=== PATIENT | female | born 1995 | race Caucasian/White ===

== ENCOUNTER 2021-06-07 16:01 | Outpatient (REF) | payer SELFPAY ==
[2021-06-10 16:10] LABS: GC Result Negative (Negative)
[2021-06-10 16:59] LABS: Chlamydia Result Positive (Negative)
== END 2021-06-07 16:02 | disposition home or self-care (01) ==
LOC: LBN 16:01
PROVIDERS: Visit Provider Nurse Practitioner Family
DX: Z11.3 Encounter for screening for infections with a predominantly sexual mode of transmission (principal)
CPT/HCPCS: 87491; 87591

== ENCOUNTER 2021-06-14 02:19 | Outpatient (CLI) | payer SELFPAY ==
[2021-06-14 16:34] LABS: HCG Quant, Pregnancy < 1 mIU/mL (1-3)
== END 2021-06-14 02:20 | disposition home or self-care (01) ==
LOC: LBO 02:19
PROVIDERS: Visit Provider Nurse Practitioner Family
DX: N93.9 Abnormal uterine and vaginal bleeding, unspecified (principal)
CPT/HCPCS: 36415; 84702

== ENCOUNTER 2022-03-31 15:29 | Outpatient (REF) | payer SELFPAY ==
--- NOTE | 2022-03-31 15:05 | PAPFT_PTH ---
PATIENT: Starr Calderon LOC: [facility] U#:[id number] AGE/SX: 27/F ROOM: RE03/31/[address]: JENNIFER Teran : 1995 BED: DIS: 03/31/2022 SPEC #: [id number] RECD: 03/31/22 17:03 STATUS: SUKHJINDER REQ #: [id number] JERROD: 03/31/22 15:[address]: Poppy Escobar DEPT: [facility] Cytology RECD BY: Anitra Crespo ENTERED: 03/31/22 17:04 SP TYPE: PAPFT ELICIA DR: Unknown,Unknown Tissues: 1 - CX/ENDOCX FOR PAP SMEARS Procedures: PAP THIN PREP/UVM Screening Comments: [id number] (UNSATISFACTORY FOR EVALUATION)
[2022-04-02 15:08] LABS: Chlamydia Result Negative (Negative); GC Result Negative (Negative)
== END 2022-03-31 15:30 | disposition home or self-care (01) ==
LOC: LBN 15:29
PROVIDERS: Visit Provider Nurse Practitioner Family
DX: R30.0 Dysuria (principal); Z11.3 Encounter for screening for infections with a predominantly sexual mode of transmission; Z12.4 Encounter for screening for malignant neoplasm of cervix
CPT/HCPCS: 87491; 87591; 88142; 87086

== ENCOUNTER 2023-08-25 12:58 | Outpatient (CLI) | payer MEDICAID, SELFPAY ==
[2023-08-25 12:50] LABS: HCG Quant, Pregnancy 3141 mIU/mL (1-3)
[2023-08-25 13:10] LABS: FREE T4 0.66 ng/dL (0.76-1.46)
[2023-08-25 17:13] LABS: T3,Free 3.2 pg/mL (2.8-5.3)
== END 2023-08-25 12:59 | disposition home or self-care (01) ==
LOC: LBO 12:59
PROVIDERS: Visit Provider Student in an Organized Health Care Education/Training Program
DX: E05.90 Thyrotoxicosis, unspecified without thyrotoxic crisis or storm (principal)
CPT/HCPCS: 36415; 84439; 84443; 84481; 84702

== ENCOUNTER 2023-09-01 19:52 | Outpatient (CLI) | payer MEDICAID, SELFPAY ==
[2023-09-01 12:07] LABS: HCG Quant, Pregnancy 542 mIU/mL (1-3)
== END 2023-09-01 19:53 | disposition home or self-care (01) ==
LOC: LBO 19:58
PROVIDERS: Visit Provider Student in an Organized Health Care Education/Training Program
DX: O02.0 Blighted ovum and nonhydatidiform mole (principal)
CPT/HCPCS: 36415; 84702

== ENCOUNTER 2023-09-08 17:48 | Outpatient (CLI) | payer MEDICAID, SELFPAY ==
[2023-09-08 11:25] LABS: HCG Quant, Pregnancy 118 mIU/mL (1-3)
== END 2023-09-08 17:49 | disposition home or self-care (01) ==
LOC: LBO 09-10 17:48
PROVIDERS: Visit Provider Student in an Organized Health Care Education/Training Program
DX: O02.0 Blighted ovum and nonhydatidiform mole (principal)
CPT/HCPCS: 36415; 84702

== ENCOUNTER 2023-09-15 15:09 | Outpatient (CLI) | payer MEDICAID, SELFPAY ==
[2023-09-15 10:56] LABS: HCG Quant, Pregnancy 32 mIU/mL (1-3)
== END 2023-09-15 15:10 | disposition home or self-care (01) ==
LOC: LBO 15:09
PROVIDERS: Visit Provider Student in an Organized Health Care Education/Training Program
DX: O02.0 Blighted ovum and nonhydatidiform mole (principal)
CPT/HCPCS: 36415; 84702

== ENCOUNTER 2023-09-25 15:06 | Outpatient (CLI) | payer MEDICAID, SELFPAY ==
[2023-09-25 11:06] LABS: HCG Quant, Pregnancy 7 mIU/mL (1-3)
== END 2023-09-25 15:07 | disposition home or self-care (01) ==
LOC: LBO 15:07
PROVIDERS: Visit Provider Student in an Organized Health Care Education/Training Program
DX: O02.0 Blighted ovum and nonhydatidiform mole (principal)
CPT/HCPCS: 36415; 84702

== ENCOUNTER 2023-10-02 12:16 | Outpatient (CLI) | payer MEDICAID, SELFPAY ==
[2023-10-02 12:01] LABS: HCG Quant, Pregnancy 4 mIU/mL (1-3)
== END 2023-10-02 12:17 | disposition home or self-care (01) ==
LOC: LBO 12:16
PROVIDERS: Visit Provider Student in an Organized Health Care Education/Training Program
DX: O02.0 Blighted ovum and nonhydatidiform mole (principal)
CPT/HCPCS: 36415; 84702

== ENCOUNTER 2023-10-07 10:23 | Outpatient (CLI) | payer MEDICAID, SELFPAY ==
[2023-10-07 13:44] LABS: HCG Quant, Pregnancy 3 mIU/mL (1-3)
== END 2023-10-07 10:24 | disposition home or self-care (01) ==
LOC: LBO 10:24
PROVIDERS: Visit Provider Student in an Organized Health Care Education/Training Program
DX: O02.0 Blighted ovum and nonhydatidiform mole (principal)
CPT/HCPCS: 36415; 84702

== ENCOUNTER 2023-10-14 09:47 | Outpatient (CLI) | payer MEDICAID, SELFPAY ==
[2023-10-14 10:02] LABS: HCG Quant, Pregnancy 1 mIU/mL (1-3)
== END 2023-10-14 09:48 | disposition home or self-care (01) ==
LOC: LBO 09:48
PROVIDERS: Visit Provider Student in an Organized Health Care Education/Training Program
DX: O02.0 Blighted ovum and nonhydatidiform mole (principal)
CPT/HCPCS: 36415; 84702

== ENCOUNTER 2023-10-21 10:11 | Outpatient (CLI) | payer MEDICAID, SELFPAY ==
[2023-10-21 10:16] LABS: HCG Quant, Pregnancy 1 mIU/mL (1-3)
== END 2023-10-21 10:12 | disposition home or self-care (01) ==
LOC: LBO 10:12
PROVIDERS: Visit Provider Student in an Organized Health Care Education/Training Program
DX: O02.0 Blighted ovum and nonhydatidiform mole (principal)
CPT/HCPCS: 36415; 84702

== ENCOUNTER 2023-11-26 15:11 | Outpatient (CLI) | payer MEDICAID, SELFPAY ==
[2023-11-26 15:48] LABS: HCG Quant, Pregnancy < 1 mIU/mL (1-3)
== END 2023-11-26 15:12 | disposition home or self-care (01) ==
LOC: LBO 15:12
PROVIDERS: Visit Provider Student in an Organized Health Care Education/Training Program
DX: O02.0 Blighted ovum and nonhydatidiform mole (principal)
CPT/HCPCS: 36415; 84702

== ENCOUNTER 2024-06-20 01:14 | Outpatient (CLI) | payer MEDICAID, SELFPAY ==
--- NOTE | 2024-06-20 | DI.US_ITS ---
Exam(s) US OB 1ST TRIMESTER EXAM: US OB 1ST TRIMESTER CLINICAL HISTORY: , DARRELL 01/24/25; FAX [phone]. TECHNIQUE: First trimester obstetrical ultrasound was performed. COMPARISON: US US OB 2-3 TRIMESTER from 08/27/2022 FINDINGS: There is an intrauterine gestational sac which contains a 3 mm yolk sac and viable pole which e xhibits heart rate of 165 bpm. [place]-rump length measurement is 21 mm, corresponding to 8 weeks and 5 days gestational age. There is a subchorionic hemorrhage evident which measures 1.3 x 0.2 x 1.9 cm Maternal ovaries: Right ovary unremarkable. Finding in the left ovary which is probably corpus luteal cyst. There is no fluid in the cul-de-sac and adnexal regions. IMPRESSION:: Single viable intrauterine gestation which is approximately 8 weeks and 5 days gestatio nal age by crown rump length measurement, implying DARRELL of 01/24/2025, There is a subchorionic hemorrhage measuring 13 x 2 x 19 mm DATA REPOSITORY:
== END 2024-06-20 01:34 ==
LOC: DI 01:14
PROVIDERS: Visit Provider Midwife
DX: Z34.91 Encounter for supervision of normal pregnancy, unspecified, first trimester (principal); Z3A.08 8 weeks gestation of pregnancy
CPT/HCPCS: 76801

== ENCOUNTER 2024-08-16 10:09 | Observation (INO) | payer MEDICAID, SELFPAY ==
[2024-08-16] VITALS (18 sets, daily range): BP systolic 66–130; BP diastolic 26–88; PULSE 48–95; RESP 16–20; TEMP 36.5–37; O2SAT 100; BMI 25.7
[2024-08-16 10:45] LABS: HCT 38.1 % (36.0-46.0); HGB 13.1 g/dL (11.2-15.7); MCH 29.4 pg (27.0-33.0); MCHC 34.4 % (32.0-36.0); MCV 85 fL (80-95); MPV 8.1 fL (8.0-11.0); Platelet Count 267 10^3/uL (130-400); RBC 4.46 10^6/uL (3.93-5.22); RDW 12.6 % (11.7-14.6); RDW-SD 39.3 fL; WBC 6.94 10^3/uL (4.4-10.8)
[2024-08-16] MEDS: miSOPROStol 200 MCG TAB 400 MCG VG ×2 (11:21→14:18)
--- NOTE | 2024-08-16 12:46 | NUR.NOTE ---
Gave patient miscarriage folder from [facility], discussed a few things she and her will get to go over with provider after baby is born and options for taking baby home, , genetic studies. Also discussed that friends and family may not bring the baby up because they aren't sure if you will want to talk about it and that sometimes people try to say something supportive and unintentionally hurt your feelings.Nursing Note:
--- NOTE | 2024-08-16 14:24 | W.PM.HP.N ---
Date of service: 08/16/24 Time of Service: 14:24 Assessment and Plan Assessment and plan (1) demise before 20 weeks with retention of fetus: Status: Acute Assessment and plan: Pt has given verbal consent to IOL with Misoprostol per vagina. Her questions were answered. History of Present Illness History of Present Illness Chief Complaint: IUFD at 16w EGA for induction of labor. Narrative: Pt is a 29yo female who presents for scheduled IOL. She is accompanied by her Brendan. Pt presented to [facility] provider [facility] on 08/11/24 at 16w2d EGA by LMP. No heart tones were auscultated and POC u/s at [facility] confirmed IUFD. CRL measurement c/w 13w2d EGA. Pt was counseled regarding delivery options and requested vaginal delivery of IUFD. Rx for Mifepristone 200mg PO on 08/15/24. She denies bleeding after the Mifepristone dose. Review of Systems All systems reviewed & are unremarkable except as noted in HPI and below PFSH All Active Problems (Updated 08/11/24 @ 17:56 by Yudi Vera MD) demise before 20 weeks with retention of fetus (Acute) Family History Father Well adult Mother Well adult Social History (Updated 08/16/24 @ 16:53 by Kendra Stephenson MD) Smoking risk assessment performed?: No Substance use type: does not use Household members: spouse and other Details: brendan. Housing: house Number of Children: 1 Do you feel safe at home: Yes Do you feel safe in your relationship?: Yes History History 4 Para 1 Hx # Term Pregnancies 1 Multiple births Hx # Pregnancies Ectopic pregnancies AB induced Hx Number of Living Children 1 AB spontaneous 2 Past Pregnancies Del. Date GA/Weeks # Preg Succ Route Wgt Sex Labor Lgth Anesthesia Location Prov Complic 03/30/21 10 No No vaginal 01/07/23 40 No Yes vaginal 7 lb 8 oz Female 08/16/24 16 No: No FHT at 16w at home [employer] office when establishing care. vaginal Delivery Date: 03/30/21 Last Updated by: Kendra Stephenson MD 10w SAB at home. No D&C. Delivery Date: 01/07/23 Last Updated by: Kendra Stephenson MD Home . Norma Jaramillo.. Delivery Date: 08/16/24 Last Updated by: Kendra Stephenson MD 13w CRL on POC u/s. Mifepristone and Misoprostol. Meds Allergies and Home Medications Allergies Allergy/AdvReac Type Severity Reaction Status Date / Time No Known Allergies Allergy Verified 08/15/24 09:56 Home Medications ?Medication ?Instructions ?Recorded ?Confirmed ?Type mifepristone 200 mg tablet 200 mg PO ONCE #1 tab 08/11/24 08/15/24 Rx vitamin#30 30 mg iron-10 cap PO 08/11/24 08/15/24 History mg iron-folic acid 1 mg-omg3 capsule Exam Narrative Exam Narrative: Comfortable with decision to proceed with Miso induction of labor Neck Neck: normal visual inspection Chest Chest: deferred Resp Effort & Inspection: normal respiratory effort Auscultation: clear to auscultation bilaterally Cardio Rate: regular rate Rhythm: regular rhythm General: deferred (per pt request. Misoprotol dose 400mg placed vaginally.) External Female Exam: normal external appearance Back/Spine/Pelvis Back: no CVA tenderness Skin General skin exam: no rashes or lesions noted Neuro General: patient alert, patient awake and patient oriented x3 Cognition: normal cognition Speech: speech normal Gait: normal gait Extrem General: normal to inspection and full ROM Psych Appearance: grossly normal Mental Status: mental status grossly normal Speech and Movement: speech and movement normal Mood: congruent mood Affect: normal affect Attitude: cooperative Thought Process: normal Thought Content: normal Insight: insight good Judgment: judgment good Results Labs 08/16/24 10:35 Labs: Laboratory Results - last 24 hr 08/16/24 10:35 WBC 6.94 RBC 4.46 Hgb 13.1 Hct 38.1 MCV 85 MCH 29.4 MCHC 34.4 RDW 12.6 Plt Count 267 MPV 8.1 ABO/Rh O Positive Antibody Screen NEGATIVE Last Vital Signs Temp 98.1 F 08/16/24 10:42 Pulse 80 08/16/24 10:42 Resp 18 08/16/24 10:42 BP 129/77 08/16/24 10:42 Time Spent Time spent with Patient: <40 minutes Time was spent: preparing to see the patient(eg.review tests), obtaining and/or reviewing separately otained hiistory, ordering medications,tests, procedures, indepentently interpreting results and counseling the patient
[2024-08-16] MEDS: Normal Saline Flush 10 ML SYR IVP (15:59)
--- NOTE | 2024-08-16 17:22 | W.PM.PROGNOT ---
Date of Service Date of service: 08/16/24 Time of Service: 14:30 Assessment and Plan Assessment and plan (1) demise before 20 weeks with retention of fetus: Status: Acute (2) Encounter for induction of labor: Status: Acute Exam Narrative Exam Narrative: Pt feeling more pelvic cramping. No vaginal bleeding. No N/V. 2nd dose of Misoprostol 400mg administered vaginally at 14:20. Pt requested that SVE be deferred. Const General: cooperative and no acute distress Nutritional Appearance: well nourished Orientation: alert, awake and oriented x3 Resp Effort & Inspection: normal respiratory effort Auscultation: clear to auscultation bilaterally Psych Appearance: grossly normal Mental Status: mental status grossly normal Speech and Movement: speech and movement normal Mood: congruent mood Affect: normal affect Objective Last Vital Signs Temp 98.1 F 08/16/24 10:42 Pulse 80 08/16/24 10:42 Resp 18 08/16/24 10:42 BP 129/77 08/16/24 10:42 Laboratory Results - last 24 hr 08/16/24 10:35 WBC 6.94 RBC 4.46 Hgb 13.1 Hct 38.1 MCV 85 MCH 29.4 MCHC 34.4 RDW 12.6 Plt Count 267 MPV 8.1 ABO/Rh O Positive Antibody Screen NEGATIVE Time Spent with Patient Time Spent with Patient: <25 minutes Time was spent: obtaining and/or reviewing separately otained hiistory, ordering medications,tests, procedures and counseling the patient
[2024-08-16] MEDS: Lactated Ringers 1,000 ML 150 ML IV (17:30)
--- NOTE | 2024-08-16 17:37 | ANES.PREOP_ITS ---
General Info Date of Service Date Performed: 08/16/24 Height: 5 ft 4 in Weight: 68.039 kg Body Mass Index (BMI): 25.7 Meds Allergies and Home Medications Allergies Allergy/AdvReac Type Severity Reaction Status Date / Time No Known Allergies Allergy Verified 08/15/24 09:56 Home Medication ?Medication ?Instructions ?Recorded mifepristone 200 mg tablet 200 mg PO ONCE #1 tab 08/11/24 vitamin#30 30 mg iron-10 cap PO 08/11/24 mg iron-folic acid 1 mg-omg3 capsule Current Visit Medications: Current Medications Generic Name Dose Route Start Last Admin Trade Name Freq PRN Reason Stop Dose Admin IV Miscellaneous Supplies 1 each 08/16/24 10:15 Iv Access IV DIRECTED OLEG Misoprostol 400 mcg 08/16/24 11:00 08/16/24 14:18 Misoprostol 200 Mcg Tab VG 400 mcg Q3H PRN OLEG Administration Sodium Chloride 0 ml 08/16/24 10:09 Normal Saline Flush 10 Ml Syr IVP PRN PRN Sodium Chloride 0 ml 08/16/24 20:00 08/16/24 15:59 Normal Saline Flush 10 Ml Syr IVP 10 ml BID OLEG Administration Sodium Chloride 0 ml 08/16/24 10:09 Normal Saline 10 Ml Vial IJ DIRECTED PRN Terbutaline Sulfate 0.25 mg 08/16/24 10:09 Terbutaline 1 Mg/Ml Vial SC PRN PRN Zolpidem Tartrate 10 mg 08/16/24 21:00 Zolpidem 5 Mg Tab PO 08/17/24 06:00 2100 OLEG PFSH Active Problems Active Problems: Problem Status Onset Code Encounter for induction of labor Acute Z34.90 demise before 20 weeks with retention of fetus Acute O02.1 Substance Use Substance use type: does not use Prental History History 2 4 Para 1 Hx # Term Pregnancies 1 Multiple births Hx # Pregnancies Ectopic pregnancies AB induced Hx Number of Living Children 1 AB spontaneous 2 Past Pregnancies Del. Date GA/Weeks # Preg Succ Route Wgt Sex Labor Lgth Anesth esia Location Prov Complic 03/30/21 10 No No vaginal 01/07/23 40 No Yes vaginal 3401.943 g Female 08/16/24 16 No: No FHT at 16w at home [facility] when establishing care. vaginal Delivery Date: 03/30/21 Last Updated by: Kendra Stephenson MD 10w SAB at home. No D&C. Delivery Date: 01/07/23 Last Updated by: Kendra Stephenson MD Home . Normabetzaida Montiel. Delivery Date: 08/16/24 Last Updated by: Kendra Stephenson MD 13w CRL on POC u/s. Mifepristone and Misoprostol. Vital Signs and Lab Results Vital Signs Most Recent Vital Signs in EMR: Most Recent Vital Signs Temp Pulse Resp BP 36.7 C 80 18 129/77 08/16/24 10:42 08/16/24 10:42 08/16/24 10:42 08/16/24 10:42 Lab Results 08/16/24 18:55 Blood Type / Crossmatch: 2 Antibody Screen NEGATIVE 08/16/24 Complete Blood Count: 2 White Blood Count 15.99 10^3/uL (4.4-10.8) H 08/16/24 18:55 Red Blood Count 4.03 10^6/uL (3.93-5.22) 08/16/24 18:55 Hemoglobin 11.9 g/dL (11.2-15.7) 08/16/24 18:55 Hematocrit 35.2 % (36.0-46.0) L 08/16/24 18:55 Platelet Count 280 10^3/uL (130-400) 08/16/24 18:55 Complete Metabolic Panel: 2 No Data to Display Liver Function Panel: 2 No Data to Display Coagulation Panel: 2 No Data to Display Cardiac Panel: 2 No Data to Display Arterial Blood Gas: 2 No Data to Display Venous Blood Gas: 2 No Data to Display Pancreas Panel: 2 No Data to Display Thyroid Panel: 2 No Data to Display Infectious Disease: 2 No Data to Display Blood Cultures: 2 No Data to Display Toxicology Panel: 2 No Data to Display Panel: 2 No Data to Display Anesthesia Assessment and Plan Anesthesia History Personal History: No History of Anesthesia Complications Family History: No Family History of Anesthesia Complications Exercise Tolerance Exercise Tolerance: Metabolic Equivalents>4 Pertinent Negatives Pertinent Negatives: No Major Cardiovascular Symptoms or Complaints and No Major Pulmonary Symptoms or Complaints Cardiac & Pulmonary Exam Cardiac Exam: Normal S1/S2 Heart Sounds Pulmonary Exam: Clear Bilateral Breath Sounds Implantable Cardiac Device Does patient have a Pacemaker or an ICD?: No Airway Exam Known Difficult Airway: No Mallampati Class: Unable to Assess Mouth Opening: Unable to Assess Thyromental Distance: Greater than 3 cm Neck Range of Motion: Full ROM and Unable to Assess Neck Circumference: Normal Teeth Condition: Unable to Assess ASA Classification ASA Score: ASA 2 Emergency Case?: Yes NPO Status NPO Status: NPO Clears >2 hours, Solids >8 hours Status Status: Other (recently delivered fetus) Anesthesia Plan Resuscitation Status: Full Code Anesthesia Technique: General Anesthesia Airway Planned: Natural Airway Monitors Used: Standard Monitors Preoperative Comments:: Chart reviewed but unable to perform full assessment since rapid change in status and deemed emergency to get to OR. No consent obtained due to emergency.
--- NOTE | 2024-08-16 18:10 | PLAC_PTH ---
PATIENT: Starr Calderon LOC: OBS U#:[id number] AGE/SX: 29/F ROOM: OBS.306 RE08/16/[address]: Kendra Stephenson : 1995 BED: A DIS: 08/17/2024 SPEC #: [id number] RECD: 08/17/24 12:49 STATUS: SUKHJINDER REQ #: [id number] JERROD: 08/16/24 18:[address]: Kendra Stephenson DEPT: Surgical Specimen RECD BY: Anitra Crespo ENTERED: 08/17/24 12:51 SP TYPE: PLAC OTHR DR: Unknown,Unknown Tissues: 1 - PLACENTA (NOT 3RD TRIMESTER) 2 - ENDOMETRIUM BX/CURRETTE Procedures: GROSS AND MICRO LEVEL 4 Comments: [id number]
[2024-08-16 19:12] LABS: HCT 35.2 % (36.0-46.0); HGB 11.9 g/dL (11.2-15.7); MCH 29.5 pg (27.0-33.0); MCHC 33.8 % (32.0-36.0); MCV 87 fL (80-95); MPV 8.1 fL (8.0-11.0); Platelet Count 280 10^3/uL (130-400); RBC 4.03 10^6/uL (3.93-5.22); RDW 12.5 % (11.7-14.6); WBC 15.99 10^3/uL (4.4-10.8)
--- NOTE | 2024-08-16 20:20 | W.PM.OP ---
Operative Note Operative Note PRE-OP DIAGNOSIS: demise at 16w2d EGA, retained placenta POST-OP DIAGNOSIS: same PROCEDURE: manual extraction of retained placenta and suction curretage. SURGEON: Kendra Stephenson ANESTHESIA TYPE: MAC Refer to Anesthesia Record ESTIMATED BLOOD LOSS: 500 PATHOLOGY: other (placenta to pathology) COMPLICATIONS: None Patient was transported to: PACU Patient's condition: stable Indications: Pt is a 29yo female with a documented IUFD @ 16w EGA who underwent a IOL with 2 doses of 400mg vaginal Misoprostol. Pt had spontaneous expulsion of a non-viable fetus at 1542. She received Oxytocin infusion after delivery. There was not evidence of spontaneous passage of the placenta after 2 hours. Pt began to expel organized clots with cramping. Decision made to proceed to OR for extraction of placenta. Findings: External os 2 cm dilated. Intact placenta with central cord insertion. Procedure Description: Patient was taken to the operating room where she was placed in the dorsal supine position and monitored anesthesia care was administered without difficulty. She was then placed in the dorsal lithotomy position in yellowfin stirrups. Perineum was prepped with Betadine scrub. A bivalve speculum was placed into the vagina and a ring forcep inserted into the uterine cavity where the placenta was grasped and extracted intact. A single-tooth tenaculum was then placed on the anterior lip of the cervix and a 11 mm curved suction cannula was then inserted into the uterine cavity attached to suction and the uterine cavity suctioned in all 4 quadrants for small amount of tissue. Suction cannula was removed and a banjo curette was used to gently curette all 4 quadrants of the uterine cavity with no tissue returned. A final pass of the 11 mm suction cannula was performed with no further tissue removed tenaculum was removed and the site was inspected noted be hemostatic. All instruments were removed from the vagina the patient placed in the dorsal supine position awakened and transported to recovery area in stable condition. All sponge and lap counts were correct. No sharps were used during this procedure. Date of Procedure: 08/16/24
[2024-08-16] MEDS: Lactated Ringers 1,000 ML 125 ML IV (22:17)
--- NOTE | 2024-08-16 22:49 | W.PM.PROGNOT ---
Date of Service Date of service: 08/16/24 Time of Service: 16:30 Assessment and Plan Assessment and plan (1) SAB (spontaneous ): Status: Acute Assessment and plan: The plan is to await spontaneous delivery of placenta. Patient declines chromosome testing on fetus and request to take the fetus home with her when she is discharged. Subjective Subjective Interval history since last seen: Patient had spontaneous vaginal delivery of a nonviable fetus while sitting on the toilet. The fetus was retrieved the cord was doubly clamped and cut and the pain was then assisted back to the bed after a brief vaginal vagal episode. Blood pressure stable IV fluids were administered and oxytocin protocol was initiated. I spoke to the patient and offered her a D&C to remove her placenta. She declined wishing to postpone any type of intervention hoping to pass the placenta spontaneously. Objective Last Vital Signs Temp 98.0 F 08/16/24 19:31 Pulse 87 08/16/24 21:00 Resp 16 08/16/24 21:00 BP 110/70 08/16/24 21:00 Pulse Ox 100 08/16/24 19:31 Laboratory Results - last 24 hr 08/16/24 08/16/24 10:35 18:55 WBC 6.94 15.99 H RBC 4.46 4.03 Hgb 13.1 11.9 Hct 38.1 35.2 L MCV 85 87 MCH 29.4 29.5 MCHC 34.4 33.8 RDW 12.6 12.5 Plt Count 267 280 MPV 8.1 8.1 ABO/Rh O Positive Antibody Screen NEGATIVE Time Spent with Patient Time Spent with Patient: 25-34 minutes Time was spent: counseling the patient and care coordination
--- NOTE | 2024-08-16 23:13 | W.ANESPOSTOP ---
Postoperative Evaluation Date, Time and Location Date Performed: 08/16/24 Time Performed: 21:00 Patient Location: Obstetrics Vital Signs Most Recent Imported Vital Signs: Most Recent Vital Signs Temp Pulse Resp BP Pulse Ox 36.7 C 87 16 110/70 100 08/16/24 19:31 08/16/24 21:00 08/16/24 21:00 08/16/24 21:00 08/16/24 19:31 Pain Score Most Recent Pain Score: Most Recent Pain Score Pain Level 0 08/16/24 19:05 Assessment Mental Status: Awake (Alert & Oriented to Patient Baseline) Airway and Respiratory Function: Patent airway with normal (patient baseline) respiratory exam Cardiovascular Function: Hemodynamically Stable Hydration Status: Adequately Hydrated Nausea & Vomiting: No Nausea or Vomiting Pain: Pt. Denies Any Pain Peripheral Nerve Block: Patient did not receive a nerve block
[2024-08-17 00:36] VITALS: BP 110/69; PULSE 87; RESP 18; TEMP 36.9
[2024-08-17 04:34] VITALS: BP 100/65; PULSE 74; RESP 18; O2SAT 98
[2024-08-17 07:23] LABS: HCT 28.1 % (36.0-46.0); HGB 9.7 g/dL (11.2-15.7); MCH 29.3 pg (27.0-33.0); MCHC 34.5 % (32.0-36.0); MCV 85 fL (80-95); MPV 8.3 fL (8.0-11.0); Platelet Count 243 10^3/uL (130-400); RBC 3.31 10^6/uL (3.93-5.22); RDW 12.8 % (11.7-14.6); RDW-SD 39.6 fL; WBC 7.46 10^3/uL (4.4-10.8)
[2024-08-17 07:45] VITALS: BP 125/85; PULSE 89; RESP 14; TEMP 37
--- NOTE | 2024-08-17 10:35 | DSE_ITS ---
Date of service: 08/17/24 Time of Service: 10:35 DS: Diagnosis Discharge Diagnosis (1) SAB (spontaneous ): Status: Acute (2) H/O dilation and curettage: Status: Acute Discharge Plan Disposition Patient Disposition: Home Condition: Stable Discharge Details Reason For Visit: IUFD second trimester Admit Date/Time: 08/16/24 10:09 Admit Provider: Kendra Stephenson Attending Provider: Kendra Stephenson Primary Care Provider: Unknown,Unknown Hospital Course Hospital Course: Pt is a 29yo female with a documented IUFD @ 16w EGA who underwent a IOL with 2 doses of 400mg vaginal Misoprostol on 08/16/24. Pt had spontaneous expulsion of a non-viable fetus at later in the after noon on the day of admission. She received Oxytocin infusion after delivery. There was not evidence of spontaneous passage of the placenta after 2 hours. Pt began to expel organized clots with cramping. She underwent a D&C in the OR with EBL of 500cc. Procedure was well tolerated. Pt was discharged to home of POD 1. No cramping, minimal bleeding. She will f/u in [facility] office in 2 weeks. Will obtain hCG at that time. Final placental pathology pending. She declined a autopsy or chromosome analysis. Home Meds and New Rx's Prescriptions: No Action PNV #[id number] 30 mg iron-10 mg iron-1 mg capsule PO mifepristone 200 mg tablet 200 mg PO ONCE Qty: 1 0RF Rx Instructions: as a single dose. 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 Discharge Instructions Stand Alone Forms: DSU Post D&C Activity:: no intercourse Equipment/Supplies:: No Equipment Needed Diet:: As Tolerated Discharge Orders Discharge Orders: Discharge Order (Routine); Ordered 08/17/24 Ordered By: Kendra Stephenson DS: Summary Time Spent with Patient providing and/or coordinating discharge services: Less than 30 minutes Status at Discharge Functional status at discharge: independent ambulation Overall status at discharge: patient is progressing back to baseline Mental Status: mental status grossly normal Speech and Movement: speech and movement normal Mood: congruent mood Affect: normal affect Quality:SDOH Health Related Social Needs: No Data to Display Exam Const General: cooperative and no acute distress Nutritional Appearance: well nourished Orientation: alert, awake and oriented x3 Resp Effort & Inspection: normal respiratory effort Auscultation: clear to auscultation bilaterally Psych Appearance: grossly normal Mental Status: mental status grossly normal Speech and Movement: speech and movement normal Mood: congruent mood Affect: normal affect DS: Data Vitals/I&O Vitals and I&O: Vital Signs Temperature 98.6 F 08/17/24 07:45 Temperature Source Oral 08/17/24 07:45 Temperature Source Oral 08/16/24 15:55 Pulse 89 08/17/24 07:45 Pulse Rhythm Regular 08/17/24 07:45 Respiratory Rate 14 08/17/24 07:45 Blood Pressure 125/85 08/17/24 07:45 Blood Pressure Mean 74 08/16/24 17:49 Pulse Oximetry 98 08/17/24 04:34 Oxygen Delivery Method Room Air 08/17/24 07:45 Oxygen Flow Rate 0 08/17/24 07:45 Pain Level 0 08/17/24 04:34 Comment PLan to go to OR for d & c stat 08/16/24 17:49 Intake & Output 08/16/24 08/16/24 08/17/24 11:59 23:59 11:59 Intake Total 717.5 / 717.5 Output Total 500 / 500 600 / 600 Balance 217.5 / 217.5 -600 / -600 Weight 150 lb 150 lb Intake: IV 717.5 / 717.5 Output: Urine 600 / 600 Estimated Blood Loss 500 / 500 Other: Urine Color Pale Pale Straw Urine Appearance Clear Urine Odor None Comment missed the hat when she got up to the toilet to void Data Completed and Pending Labs on day of discharge: Labs from last 24 hours 08/17/24 08/16/24 08/16/24 07:05 18:55 10:35 WBC 7.46 15.99 H 6.94 RBC 3.31 L 4.03 4.46 Hgb 9.7 L D 11.9 13.1 Hct 28.1 L 35.2 L 38.1 MCV 85 87 85 MCH 29.3 29.5 29.4 MCHC 34.5 33.8 34.4 RDW 12.8 12.5 12.6 Plt Count 243 280 267 MPV 8.3 8.1 8.1 ABO/Rh O Positive Antibody Screen NEGATIVE PFSH All Active Problems (Updated 08/16/24 @ 22:53 by Kendra Stephenson MD) H/O dilation and curettage (Acute) SAB (spontaneous ) (Acute) 08/16/2024. Induction of labor for nonviable fetus diagnosed at 16 weeks EGA. Encounter for induction of labor (Acute) demise before 20 weeks with retention of fetus (Acute) Family History Father Well adult Mother Well adult Social History (Updated 08/16/24 @ 16:53 by Kendra Stephenson MD) Smoking risk assessment performed?: No Substance use type: does not use Household members: spouse and other Details: skyler. Housing: house Number of Children: 1 Do you feel safe at home: Yes Do you feel safe in your relationship?: Yes History History 4 Para 1 Hx # Term Pregnancies 1 Multiple births Hx # Pregnancies Ectopic pregnancies AB induced Hx Number of Living Children 1 AB spontaneous 2 Past Pregnancies Del. Date GA/Weeks # Preg Succ Route Wgt Sex Labor Lgth Anesth esia Location Prov Complic 03/30/21 10 No No vaginal 01/07/23 40 No Yes vaginal 7 lb 8 oz Female 08/16/24 16 No: No FHT at 16w at home [facility] when establishing care. vaginal Delivery Date: 03/30/21 Last Updated by: Kendra Stephenson MD 10w SAB at home. No D&C. Delivery Date: 01/07/23 Last Updated by: Kendra Stephenson MD Home . Norma Ella.. Delivery Date: 08/16/24 Last Updated by: Kendra Stephenson MD 13w CRL on POC u/s. Mifepristone and Misoprostol. Time Spent with Patient Time Spent with Patient: <45 minutes Time was spent: preparing to see the patient(eg.review tests), obtaining and/or reviewing separately otained hiistory and counseling the patient
== END 2024-08-17 12:20 | disposition home or self-care (01) ==
PROVIDERS: Admitting Provider Obstetrics & Gynecology Gynecology; Visit Provider Obstetrics & Gynecology Gynecology
PROC: (CPT 59160; principal; 2024-08-16 17:45)
DX: O36.4XX0 Maternal care for intrauterine death, not applicable or unspecified (principal); Z37.1 Single stillbirth; Z3A.16 16 weeks gestation of pregnancy; O03.30 Unspecified complication following incomplete spontaneous abortion
CPT/HCPCS: 59160; 59821; 36415; 85027; 86850; 86900; 86901; 88305; 59200; J0665; J2003; J2250; J2704

== ENCOUNTER 2024-09-02 13:49 | Outpatient (CLI) | payer MEDICAID, SELFPAY ==
[2024-09-02 13:02] LABS: HCG Quant, Pregnancy 5 mIU/mL (1-3)
== END 2024-09-02 13:50 | disposition home or self-care (01) ==
LOC: LBO 13:50
PROVIDERS: Visit Provider Obstetrics & Gynecology Gynecology
DX: Z98.890 Other specified postprocedural states (principal); O03.9 Complete or unspecified spontaneous abortion without complication; O02.1 Missed abortion
CPT/HCPCS: 36415; 84702

== ENCOUNTER 2024-12-05 02:03 | Outpatient (CLI) | payer MEDICAID, SELFPAY ==
--- NOTE | 2024-12-05 | DI.US_ITS ---
Exam(s) US OB 1ST TRIMESTER EXAM: US OB 1ST TRIMESTER CLINICAL HISTORY: , DARRELL 07/12/25 by ovulation test. COMPARISON: No exams were available for comparison TECHNIQUE: Transabdominal Transvaginal first trimester obstetrical ultrasound performed. FINDINGS: Sonographic images demonstrate a single intrauterine gestation. A yolk sac and pole are seen. Sonographically assessed gestational age based upon crown-rump length of 2.1 cm is: 8 weeks 5 days Estimated date of delivery based on this ultrasound is: 12 July 2025 Estimated date of delivery based upon LMP: July 25 heart rate motion is Dopplered at: 176 bpm. No free fluid identified. Pelvic Measurments Uterus: 10.8 x 6.8 x 9.1 cm Rt Ovary: Not visualized Lt Ovary: 3.1 x 2.3 x 3.3 IMPRESSION: Single live intrauterine gestation measuring 8 weeks 5 days. DATA REPOSITORY:
[2025-02-02 19:05] VITALS: BP 133/75; PULSE 95
[2025-02-03 10:23] VITALS: BP 136/76; PULSE 84
== END 2025-02-02 18:52 ==
LOC: DI 02:03 → OBS 02-02 18:49
PROVIDERS: Visit Provider Midwife
DX: Z34.81 Encounter for supervision of other normal pregnancy, first trimester (principal); Z3A.08 8 weeks gestation of pregnancy
CPT/HCPCS: 76801

== ENCOUNTER 2025-02-02 18:49 | Outpatient (CLI) | payer MEDICAID, SELFPAY ==
--- NOTE | 2025-02-02 18:59 | NUR.NOTE ---
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 experienced gush on blood tonight aroung 1720, wearing a pad, not consistantly bleeding. arrive to at 1844 where doppler was optained for a fhr of 165. spec exam done by MD Vera, showed trace blood in vaginal, no fluid, no discharge. Bedisde US done, baby moving great, only finding was possible low lying placenta. Pt has hx of multiple miscarriages so was asked to come in and be seen. states everyting looks good at this time. Nursing Note:
[2025-02-02 19:06] VITALS: BP 133/75; PULSE 95; RESP 16; TEMP 36.3; O2SAT 99
--- NOTE | 2025-02-02 19:09 | W.OBCONSULT ---
Date of service: 02/02/25 Time of Service: 19:09 Assessment and Plan Assessment and plan (1) Vaginal bleeding before 22 weeks gestation: Status: Acute Assessment and plan: We discussed that there was no obvious source of the bleeding but it appeared to have come from within the cervix. No e/o active bleeding on exam. (2) Low lying placenta, antepartum: Status: Acute Assessment and plan: We discussed possible placenta previa and low lying placenta. Recommend pelvic rest until her anatomy sono in a few weeks. Discussed the risk of continued spotting or bleeding. 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 She is 17.1wks with and EDC of 07/12/25 based on LMP. She had a gush of vaginal bleeding around 5:20pm. She had to use the bathroom and first thought it was just urine that leaked but then realized it was blood. She put on a thing pad and called her wastewater superintendent, then came here. She denies any cramping or contractions. No recent intercourse or trauma. Her ob hx consists of 1 prior unmedicated home delivery, a 10wk miscarriage at home, a D&C for a molar , then a demise at 13-14wks with IOL and delivery and D&C for retained placenta. This last delivery was in Jul. Therefore, she is understandably worried about this ! She thinks she is starting to feel some movement but it's not consistent. Review of Systems Genitourinary Genitourinary: Reports system reviewed and no additional complaints, except as documented PFSH All Active Problems (Updated 02/02/25 @ 19:18 by Yudi Vera MD) Low lying placenta, antepartum (Acute) Vaginal bleeding before 22 weeks gestation (Acute) Medical History (Updated 02/02/25 @ 19:18 by Yudi Vera MD) SAB (spontaneous ) 08/16/2024. Induction of labor for nonviable fetus diagnosed at 16 weeks EGA. demise before 20 weeks with retention of fetus Surgical History (Updated 02/02/25 @ 19:18 by Yudi Vera MD) H/O dilation and curettage for retained placenta after 13wk delivery of demise Family History Father Well adult Mother Well adult Social History (Updated 08/16/24 @ 16:53 by Kendra Stephenson MD) Smoking risk assessment performed?: No Substance use type: does not use Household members: spouse and other Details: skyler. Housing: house Number of Children: 1 Do you feel safe at home: Yes Do you feel safe in your relationship?: Yes History History 5 Para 1 Hx # Term Pregnancies 1 Multiple births Hx # Pregnancies Ectopic pregnancies AB induced Hx Number of Living Children 1 AB spontaneous 3 Past Pregnancies Del. Date GA/Weeks # Preg Succ Route Wgt Sex Labor Lgth Anesthesia Location Prov Complic 03/30/21 10 No No vaginal 01/07/23 40 No Yes vaginal 7 lb 8 oz Female 08/16/24 16 No: No FHT at 16w at home wastewater superintendent office when establishing care. vaginal Delivery Date: 03/30/21 Last Updated by: Kendra Stephenson MD 10w SAB at home. No D&C. Delivery Date: 01/07/23 Last Updated by: Kendra Stephenson MD Home . [facility].. Delivery Date: 08/16/24 Last Updated by: Yudi Vera MD 13w CRL on POC u/s. IOL with Mifepristone and misoprostol followed by D&C for retained placenta Exam Const General: cooperative, healthy appearing and no acute distress HENMT Head: normocephalic and atraumatic Ears: hearing grossly normal bilaterally Resp Effort & Inspection: normal respiratory effort and able to speak in complete sentences Speculum Exam - Vagina: normal appearance of the vagina (scant blood noted) Speculum Exam - Cervix: normal appearance of the cervix (no active bleeding or fluid leaking from cervix) and closed Neuro General: patient alert and patient awake Psych Appearance: grossly normal Mental Status: mental status grossly normal Speech and Movement: speech and movement normal Affect: normal affect Attitude: cooperative Thought Process: normal Thought Content: normal Results Last Vital Signs Temp 97.3 F L 02/02/25 19:06 Pulse 95 H 02/02/25 19:06 Resp 16 02/02/25 19:06 BP 133/75 02/02/25 19:06 Pulse Ox 99 02/02/25 19:06 WW Pocus Exam Exam testing Date/Time of Exam: Date of exam: 02/02/2025 Time of exam: 7:14 pm Pelvic Pain & Abnormal Uterine Bleeding Other Findings: Viable infant with lots of movement. Low lying placenta, possible placenta previa, difficult to clearly view cervix. Coding for Transabdominal exam: Complete exam
== END 2025-02-02 19:08 | disposition home or self-care (01) ==
LOC: BCD 18:50 → OBS 18:56
PROVIDERS: Visit Provider Advanced Practice Midwife
DX: O20.9 Hemorrhage in early pregnancy, unspecified (principal); O44.40 Low lying placenta NOS or without hemorrhage, unspecified trimester; Z3A.17 17 weeks gestation of pregnancy
CPT/HCPCS: 76857; 59025

== ENCOUNTER 2025-02-22 00:05 | Outpatient (CLI) | payer MEDICAID, SELFPAY ==
--- NOTE | 2025-02-22 12:30 | DI.US_ITS ---
Exam(s) US OB 2-3 TRIMESTER EXAM: US OB 2-3 TRIMESTER CLINICAL HISTORY: ANATOMY SCAN, Z36.3, , DARRELL 07/12/2025. TECHNIQUE: Transabdominal obstetrical ultrasound performed. COMPARISON: US US OB 2-3 TRIMESTER from 08/27/2022 FINDINGS: Number of fetuses: 1 position: CEPHALIC heart rate: 159bpm Placental location: There is a grade 1 posterior placenta. The placental tip is 3.7 cm from the internal os. No evidence of previa. Cervical length: 3.6 cm. Amniotic fluid index: Amount of fluid is within normal limits. ANATOMICAL SURVEY: Within normal limits. BIOMETRIC DATA: BPD: 4.93cm, 20weeks 6days HC: 18.05cm, 20weeks 3days AC: 14.38cm, 19weeks 5days FL: 3.19cm, 19weeks 6days Cisterna magna: 5.3mm Cerebellum: 2.15cm Lateral ventricle: 0.6 cm. EFW: 320.68g, 0.72lb, 40.3% Composite Age: 20weeks 2days DARRELL: 07/10/2025 Heart Rate: 159bpm ANATOMICAL SURVEY: Four-chambered heart: Unremarkable. RVOT: Unremarkable. LVOT: Unremarkable. Left-sided stomach: Unremarkable. urinary bladder: Unremarkable. Bilateral kidneys: Unremarkable. Three-vessel cord: Unremarkable. Cord insertion: The cord insertion site is unremarkable. The placental cord insertion site is 1.9 cm from the edge. Posterior fossa: Unremarkable. ventricles: Unremarkable. nose/lips: Unremarkable. Palate: Unremarkable. spine: Unremarkable. Two arms and two legs: Unremarkable. IMPRESSION: 1. Single live intrauterine gestation as above. 2. Normal anatomic survey. 3. The placental cord insertion site is 1.9 cm from the edge. DATA REPOSITORY:
== END 2025-02-22 00:25 ==
PROVIDERS: Visit Provider Midwife
DX: Z36.3 Encounter for antenatal screening for malformations (principal); Z3A.20 20 weeks gestation of pregnancy
CPT/HCPCS: 76805